=== PATIENT | male | born 1985 | race Caucasian/White ===

== ENCOUNTER 2020-05-12 18:56 | Inpatient (IN) | payer OTHER ==
[~2020-05-12] VITALS: Ht 175.3 cm; Wt 75.0 kg
[~2020-05-12 18:56] MED LIST: ACET-2247 PO; IBUP-2071 PO; MESA400C PO; MIRT30 PO; OXCA300T57 PO
[2020-05-12] MEDS ORDERED: GABA-1181 PO ×2 (20:03→20:16)
[2020-05-12] MEDS ORDERED: MESA400C2 PO (20:18)
[2020-05-12 21:05] LABS: BASOPHILS % (AUTO) 0.7 % (0.0-2.0); EOSINOPHILS % (AUTO) 1.1 % (1.0-6.0); HEMATOCRIT 33.7 % (41-53); HEMOGLOBIN 11.2 g/dL (13.5-17.5); LYMPHOCYTES # (AUTO) 1.4 K/uL (1.0-4.8); LYMPHOCYTES % (AUTO) 28.4 % (22.0-44.0); MEAN CORPUSCULAR HEMOGLOBIN 26.2 pg (26.0-34.0); MEAN CORPUSCULAR HGB CONC 33.2 G/dL (31.0-37.0); MEAN CORPUSCULAR VOLUME 79 fL (80-100); MONOCYTES # (AUTO) 0.4 K/uL (0.1-1.0); MONOCYTES % (AUTO) 7.4 % (2.0-9.0); NEUTROPHILS # (AUTO) 3.1 K/uL (1.8-7.7); NEUTROPHILS % (AUTO) 62.4 % (40.0-70.0); PLATELET COUNT (AUTO) 405 K/uL (150-450); RED BLOOD CELL COUNT(AUTO) 4.26 MIL/uL (4.50-5.90); RED CELL DISTRIBUTION WIDTH 15.7 % (11.5-14.5)
[2020-05-12 21:15] LABS: ANION GAP 2 mmol/L (8-16); CARBON DIOXIDE 33 mmol/L (22-29); CHLORIDE 100 mmol/L (98-107); CREATININE 0.75 mg/dL (0.60-1.30); GLOMERULAR FILTR. RATE CALC > 60 mL/min (>60); GLUCOSE,RANDOM 92 mg/dL (70-110); POTASSIUM 3.9 mmol/L (3.5-5.1); SODIUM SERUM 135 mmol/L (136-145); UREA NITROGEN, BLOOD 10 mg/dL (7-18)
[2020-05-12 21:21] LABS: ALANINE AMINOTRANSFERASE 58 U/L (12-78); ALBUMIN 3.3 g/dL (3.4-5.0); ALKALINE PHOSPHATASE 107 U/L (46-116); ASPARTATE AMINOTRANSFERASE 40 U/L (15-37); BILIRUBIN,TOTAL 0.6 mg/dL (0.1-1.0); TOTAL PROTEIN, SERUM 8.6 g/dL (6.4-8.2)
[2020-05-12] MEDS ORDERED: METOCLOPRAMIDE HCL 5 MG/ML 2 ML VIAL IVP PRN (21:45)
[2020-05-12] MEDS ORDERED: ACETAMINOPHEN/CODEINE 300-15 MG TABLET PO PRN (21:45)
[2020-05-12] MEDS ORDERED: DICYCLOMINE HCL 10 MG CAPSULE PO PRN (21:45)
[2020-05-12] MEDS ORDERED: LOPERAMIDE HCL 2 MG CAPSULE PO PRN (21:45)
[2020-05-12 22:13] VITALS: BP 134/68
[2020-05-13 04:39] VITALS: BP 128/66
[2020-05-13 08:00] VITALS: BP 120/62
[2020-05-13] MEDS: MESALAMINE 400 MG DR CAPSULE PO SCH ×3 (09:44→21:14)
[2020-05-13] MEDS: LORazepam 2 MG/ML VIAL IVP PRN (09:44)
[2020-05-13] MEDS: GABAPENTIN 300 MG CAPSULE PO SCH ×2 (09:44→21:14)
[2020-05-13] MEDS ORDERED: MAGNESIUM SULFATE 2 GM, MVI, ADULT NO.1 WITH VIT K 10 ML, THIAMINE 100 MG, FOLIC ACID 1... IV ONE ×5 (11:15)
[2020-05-13 14:00] VITALS: BP 107/48
[2020-05-13 17:00] VITALS: BP 121/62
[2020-05-13 17:55] LABS: AMPHET/METH SCREEN,URINE POSITIVE (NEGATIVE); BARBITURATE SCREEN, URINE NEGATIVE (NEGATIVE); BENZODIAZEPINES SCREEN,URINE NEGATIVE (NEGATIVE); CANNABINOID SCREEN,URINE NEGATIVE (NEGATIVE); COCAINE SCREEN,URINE NEGATIVE (NEGATIVE); METHADONE SCREEN, URINE NEGATIVE (NEGATIVE); OPIATE SCREEN,URINE POSITIVE (NEGATIVE)
[2020-05-13 17:58] LABS: PHENCYCLIDINE SCREEN,URINE NEGATIVE (NEGATIVE)
[2020-05-13 19:42] VITALS: BP 126/72
[2020-05-13] MEDS: TEMAZEPAM 15 MG CAPSULE PO SCH (21:13)
[2020-05-14 05:20] VITALS: BP 117/63
[2020-05-14] MEDS: GABAPENTIN 300 MG CAPSULE PO SCH ×2 (08:11→20:17)
[2020-05-14] MEDS: MESALAMINE 400 MG DR CAPSULE PO SCH ×3 (08:11→20:17)
[2020-05-14 08:20] VITALS: BP 110/66
[2020-05-14 15:02] VITALS: BP 100/47
[2020-05-14] MEDS: TEMAZEPAM 15 MG CAPSULE PO SCH (20:17)
[2020-05-14 20:25] VITALS: BP 112/52
[2020-05-15 07:25] VITALS: BP 111/56
[2020-05-15] MEDS: MESALAMINE 400 MG DR CAPSULE PO SCH ×3 (08:27→20:13)
[2020-05-15] MEDS: GABAPENTIN 300 MG CAPSULE PO SCH ×2 (08:28→20:13)
[2020-05-15] MEDS: LORazepam 2 MG/ML VIAL IVP PRN (08:31)
[2020-05-15 19:57] VITALS: BP 124/72
[2020-05-15] MEDS: TEMAZEPAM 15 MG CAPSULE PO SCH (20:12)
[2020-05-15] MEDS ORDERED: SODIUM CHLORIDE 0.9% 500 ML IV ONE (20:47)
[2020-05-16 07:57] VITALS: BP 129/77
[2020-05-16] MEDS: MESALAMINE 400 MG DR CAPSULE PO SCH ×3 (08:08→19:48)
[2020-05-16] MEDS: GABAPENTIN 300 MG CAPSULE PO SCH ×2 (08:09→19:49)
[2020-05-16 15:37] VITALS: BP 128/76
[2020-05-16] MEDS: TEMAZEPAM 15 MG CAPSULE PO SCH (19:49)
[2020-05-16 20:20] VITALS: BP 133/76
== END 2020-05-17 07:08 | DRG 897 ==
LOC: EMS 18:56 → 6S 20:00 → UNDOADMIN 20:00 → 6S 21:37
PROVIDERS: ADMIT Internal Medicine; ATTEND Internal Medicine
DX: F11.10 Opioid abuse, uncomplicated (principal); F19.10 Other psychoactive substance abuse, uncomplicated; B19.20 Unspecified viral hepatitis C without hepatic coma; K58.9 Irritable bowel syndrome, unspecified; F15.10 Other stimulant abuse, uncomplicated; G40.909 Epilepsy, unspecified, not intractable, without status epilepticus; Z02.89 Encounter for other administrative examinations; Z79.899 Other long term (current) drug therapy
CPT/HCPCS: G0480; J2060; J3411; J3475; J3490; J7030; J7040